=== PATIENT | male | born 1960 | race Caucasian/White ===

== ENCOUNTER 2020-05-06 07:04 | Inpatient (IN) | payer MEDICAID, OTHER ==
[~2020-05-06] VITALS: Ht 170.2 cm; Wt 77.7 kg
[2020-05-06 07:48] LABS: HEMATOCRIT. 33.5 % (42.0-52.0); HEMOGLOBIN. 11.6 g/dL (14.0-18.0); MEAN CORPUSCULAR HEMOGLOBIN 34.1 pg (28.0-32.0); MEAN CORPUSCULAR VOLUME 98.4 fL (80.0-94.0); MEAN PLATELET VOLUME 9.2 fl (7.4-10.4); PLATELET 116 x1000/uL (130-400); RED CELL DISTRIBUTION WIDTH 15.9 % (11.6-14.6)
[2020-05-06 07:54] LABS: CHLORIDE 99 mEq/L (98-107)
[2020-05-06 07:59] LABS: ETHANOL BLOOD < 10 mg/dL
[2020-05-06 08:03] LABS: CLARITY URINE CLOUDY (CLEAR); COLOR URINE ORANGE (YELLOW); KETONES URINE TRACE (NEGATIVE); LEUKOCYTE ESTERASE URINE 1+ (NEGATIVE); NITRITE URINE NEGATIVE (NEGATIVE); OCCULT BLOOD URINE 3+ (NEGATIVE); PROTEIN URINE TRACE (NEGATIVE); SPECIFIC GRAVITY URINE 1.024 (1.005-1.030)
[2020-05-06 08:19] LABS: *BENZODIAZEPINES SCREEN URINE NEGATIVE (NEGATIVE)
[2020-05-06 08:20] LABS: *AMPHETAMINES SCREEN URINE NEGATIVE (NEGATIVE); *COCAINE SCREEN URINE NEGATIVE (NEGATIVE); CANNABINOID URINE SCREEN NEGATIVE (NEGATIVE); METHADONE URINE SCREEN NEGATIVE (NEGATIVE); OPIATES URINE SCREEN NEGATIVE (NEGATIVE); PHENCYCLIDINE URINE SCREEN NEGATIVE (NEGATIVE)
[2020-05-06 08:21] LABS: *BARBITURATES SCREEN URINE NEGATIVE (NEGATIVE)
[2020-05-06 09:11] LABS: BG BASE EXCESS -12.1 mmol/L (-2.0-2.0); BG CARBOXYHEMOGLOBIN 0.3 % (0.5-1.5); BG DEOXYHEMOGLOBIN 1.7 % (0.0-5.0); BG FRACTION INSPIRED OXYGEN 21; BG HCO3 ACT 11.4 mmol/L (22.0-26.0); BG METHEMOGLOBIN 0.5 % (0.0-1.5); BG OXYGEN SATURATION 98.3 % (92.0-98.5); BG OXYHEMOGLOBIN 97.5 % (94.0-97.0); BG PCO2 20.8 mmHg (35.0-45.0); BG PH 7.357 (7.350-7.450); BG PO2 141.4 mmHg (75.0-100.0); BG SAMPLE SITE RIGHT RADIAL; BG TOTAL HEMOGLOBIN 11.4 g/dL (12.0-18.0); BG VENT MODE ROOM AIR
[2020-05-06 09:14] LABS: ATYPICAL LYMPHOCYTES 1
[2020-05-06 09:15] LABS: PLATELET ESTIMATE SLIGHTLY DECREASED
[2020-05-06] MEDS ORDERED: LEVETIRACETAM 1000MG/100ML 100 ML IV ONE (09:15)
[2020-05-06] MEDS ORDERED: LACTULOSE 20G/30ML UDC PO ONE (09:15)
[2020-05-06 13:00] VITALS: BP 97/60
[2020-05-06] MEDS ORDERED: ONDANSETRON HCL 4MG/2ML INJ IV PRN (13:15)
[2020-05-06] MEDS ORDERED: CEFTRIAXONE 1,000 MG in DEXTROSE 5% WATER 50 ML IV SCH (14:30)
[2020-05-06] MEDS ORDERED: IOHEXOL-300 100 ML BOTTLE ONE (14:47)
[2020-05-06] MEDS: LACTULOSE 20G/30ML UDC PO SCH ×2 (15:17→21:05)
[2020-05-06] MEDS: SODIUM CHLORIDE 0.9% 1,000 ML IV SCH (15:18)
[2020-05-06 16:00] VITALS: BP 102/49
[2020-05-06] MEDS: CEFTRIAXONE 1,000 MG in DEXTROSE 5% WATER 50 ML IV SCH (16:12)
[2020-05-06] MEDS ORDERED: DEXTROSE 50% WATER 50ML SYRINGE IV PRN (16:15)
[2020-05-06 16:32] LABS: INR 1.3; PROTHROMBIN TIME 13.3 sec (9.6-11.0)
[2020-05-06] MEDS: BLOOD SUGAR DIAGNOSTIC STRIP TEST SCH ×2 (16:54→20:44)
[2020-05-06] MEDS: INSULIN LISPRO 100 UNITS/ML SUBCUT SCH ×2 (16:56→20:44)
[2020-05-06 20:00] VITALS: BP 97/64
[2020-05-06] MEDS: RIFAXIMIN 550 MG TABLET PO SCH (20:44)
[2020-05-06] MEDS: LORAZEPAM 2MG/ML CPJ IV PRN (20:44)
[2020-05-07] VITALS (7 sets, daily range): BP systolic 94–151; BP diastolic 47–76
[2020-05-07] MEDS: LORAZEPAM 2MG/ML CPJ IV PRN ×3 (03:47→21:06)
[2020-05-07] MEDS: LACTULOSE 20G/30ML UDC PO SCH ×3 (05:03→21:32)
[2020-05-07] MEDS: INSULIN LISPRO 100 UNITS/ML SUBCUT SCH ×4 (06:14→21:00)
[2020-05-07] MEDS: BLOOD SUGAR DIAGNOSTIC STRIP TEST SCH ×4 (06:14→21:21)
[2020-05-07] MEDS: RIFAXIMIN 550 MG TABLET PO SCH ×2 (09:20→21:29)
[2020-05-07 09:52] LABS: BASOPHILS % 0.4 % (0.0-2.0); EOSINOPHILS % 0.8 % (0.0-5.0); HEMATOCRIT. 29.3 % (42.0-52.0); HEMOGLOBIN. 10.4 g/dL (14.0-18.0); LYMPHOCYTES % 8.9 % (20.0-50.0); MEAN CORPUSCULAR HEMOGLOBIN 34.5 pg (28.0-32.0); MEAN CORPUSCULAR VOLUME 97.6 fL (80.0-94.0); MEAN PLATELET VOLUME 8.9 fl (7.4-10.4); NEUTROPHILS % 77.9 % (40.0-76.0); PLATELET 78 x1000/uL (130-400); RED CELL DISTRIBUTION WIDTH 15.7 % (11.6-14.6)
[2020-05-07 10:00] LABS: CHLORIDE 106 mEq/L (98-107)
[2020-05-07] MEDS: SODIUM CHLORIDE 0.9% 1,000 ML IV SCH (11:08)
[2020-05-07] MEDS ORDERED: LORAZEPAM 2MG/ML CPJ IV SCH (13:30)
[2020-05-07] MEDS ORDERED: LIDOCAINE HCL 1% 20ML VIAL (Pyxis) INJ ONE (14:31)
[2020-05-07] MEDS ORDERED: SODIUM BICARBONATE 4% (2.4MEQ) 5ML VIAL IV ONE (14:32)
[2020-05-07] MEDS: CEFTRIAXONE 1,000 MG in DEXTROSE 5% WATER 50 ML IV SCH (16:05)
[2020-05-08 00:44] VITALS: BP 95/54
[2020-05-08 04:30] VITALS: BP 98/45
[2020-05-08] MEDS: LACTULOSE 20G/30ML UDC PO SCH ×3 (05:09→21:05)
[2020-05-08] MEDS: BLOOD SUGAR DIAGNOSTIC STRIP TEST SCH ×4 (05:50→20:32)
[2020-05-08] MEDS: INSULIN LISPRO 100 UNITS/ML SUBCUT SCH ×4 (05:50→20:37)
[2020-05-08] MEDS: SODIUM CHLORIDE 0.9% 1,000 ML IV SCH (06:15)
[2020-05-08 07:01] LABS: BASOPHILS % 0.8 % (0.0-2.0); EOSINOPHILS % 1.2 % (0.0-5.0); HEMATOCRIT. 31.8 % (42.0-52.0); HEMOGLOBIN. 11.1 g/dL (14.0-18.0); LYMPHOCYTES % 9.6 % (20.0-50.0); MEAN CORPUSCULAR HEMOGLOBIN 34.3 pg (28.0-32.0); MEAN CORPUSCULAR VOLUME 98.2 fL (80.0-94.0); MEAN PLATELET VOLUME 9.1 fl (7.4-10.4); MONOCYTES % 13.7 % (2.0-8.0); NEUTROPHILS % 74.7 % (40.0-76.0); PLATELET 92 x1000/uL (130-400); RED BLOOD CELL COUNT 3.23 mill/uL (4.7-6.1); RED CELL DISTRIBUTION WIDTH 16.2 % (11.6-14.6)
[2020-05-08 07:46] LABS: CHLORIDE 109 mEq/L (98-107)
[2020-05-08 08:00] VITALS: BP 97/64
[2020-05-08] MEDS: RIFAXIMIN 550 MG TABLET PO SCH ×2 (11:13→21:05)
[2020-05-08 12:29] VITALS: BP 107/73
[2020-05-08] MEDS ORDERED: POTASSIUM CHLORIDE 20MEQ TABLET SR PO NR (12:45)
[2020-05-08] MEDS ORDERED: POTASSIUM CHLORIDE INJ 40 MEQ in DEXT 5% WATER 250 ML IV NR (14:00)
[2020-05-08] MEDS: CEFTRIAXONE 1,000 MG in DEXTROSE 5% WATER 50 ML IV SCH (15:14)
[2020-05-08 15:59] LABS: CREATINE KINASE 3872 IU/L (39-308)
[2020-05-08 16:00] VITALS: BP 100/63
[2020-05-08 20:24] VITALS: BP 110/60
[2020-05-08] MEDS: LORAZEPAM 2MG/ML CPJ IV PRN (21:05)
[2020-05-09 00:44] VITALS: BP 97/48
[2020-05-09 04:00] VITALS: BP 114/65
[2020-05-09] MEDS: SODIUM CHLORIDE 0.9% 1,000 ML IV SCH (05:36)
[2020-05-09] MEDS: LACTULOSE 20G/30ML UDC PO SCH ×3 (05:36→21:18)
[2020-05-09 06:48] LABS: EOSINOPHILS % 3.4 % (0.0-5.0); HEMATOCRIT. 31.7 % (42.0-52.0); HEMOGLOBIN. 10.9 g/dL (14.0-18.0); LYMPHOCYTES % 14.5 % (20.0-50.0); MEAN CORPUSCULAR HEMOGLOBIN 34.2 pg (28.0-32.0); MEAN CORPUSCULAR VOLUME 99.4 fL (80.0-94.0); MEAN PLATELET VOLUME 9.2 fl (7.4-10.4); MONOCYTES % 14.4 % (2.0-8.0); NEUTROPHILS % 66.7 % (40.0-76.0); PLATELET 94 x1000/uL (130-400); RED BLOOD CELL COUNT 3.18 mill/uL (4.7-6.1); RED CELL DISTRIBUTION WIDTH 15.8 % (11.6-14.6)
[2020-05-09] MEDS: INSULIN LISPRO 100 UNITS/ML SUBCUT SCH ×4 (07:35→20:51)
[2020-05-09] MEDS: BLOOD SUGAR DIAGNOSTIC STRIP TEST SCH ×4 (07:35→20:51)
[2020-05-09 07:50] LABS: CHLORIDE 113 mEq/L (98-107)
[2020-05-09 08:00] VITALS: BP 105/52
[2020-05-09] MEDS: RIFAXIMIN 550 MG TABLET PO SCH ×2 (08:33→20:52)
[2020-05-09] MEDS ORDERED: POTASSIUM CHLORIDE 20MEQ TABLET SR PO NR (11:15)
[2020-05-09 12:00] VITALS: BP 93/60
[2020-05-09] MEDS: CEFTRIAXONE 1,000 MG in DEXTROSE 5% WATER 50 ML IV SCH (15:48)
[2020-05-09 16:00] VITALS: BP 90/58
[2020-05-09 20:21] VITALS: BP 104/65
[2020-05-10 00:03] VITALS: BP 101/64
[2020-05-10] MEDS: SODIUM CHLORIDE 0.9% 1,000 ML IV SCH (02:01)
[2020-05-10 04:00] VITALS: BP 109/70
[2020-05-10] MEDS: LACTULOSE 20G/30ML UDC PO SCH ×3 (06:25→21:33)
[2020-05-10] MEDS: BLOOD SUGAR DIAGNOSTIC STRIP TEST SCH ×4 (06:38→21:33)
[2020-05-10] MEDS: INSULIN LISPRO 100 UNITS/ML SUBCUT SCH ×4 (07:33→21:00)
[2020-05-10 08:00] VITALS: BP 90/58
[2020-05-10] MEDS: RIFAXIMIN 550 MG TABLET PO SCH ×2 (09:34→21:33)
[2020-05-10 12:00] VITALS: BP 96/58
[2020-05-10 15:46] LABS: CHLORIDE 113 mEq/L (98-107)
[2020-05-10 16:00] VITALS: BP 102/63
[2020-05-10] MEDS: CEFTRIAXONE 1,000 MG in DEXTROSE 5% WATER 50 ML IV SCH (16:45)
[2020-05-10 20:23] VITALS: BP 99/67
[2020-05-11 00:28] VITALS: BP 103/68
[2020-05-11] MEDS: LORAZEPAM 2MG/ML CPJ IV PRN (02:38)
[2020-05-11 04:00] VITALS: BP 119/70
[2020-05-11] MEDS: LACTULOSE 20G/30ML UDC PO SCH ×3 (05:17→21:24)
[2020-05-11] MEDS: BLOOD SUGAR DIAGNOSTIC STRIP TEST SCH ×4 (06:46→21:24)
[2020-05-11] MEDS: INSULIN LISPRO 100 UNITS/ML SUBCUT SCH ×4 (06:47→21:37)
[2020-05-11 08:30] VITALS: BP 97/71
[2020-05-11] MEDS ORDERED: POTASSIUM CHLORIDE 20MEQ TABLET SR PO NR (08:30)
[2020-05-11] MEDS: RIFAXIMIN 550 MG TABLET PO SCH ×2 (09:29→21:24)
[2020-05-11 12:00] VITALS: BP 93/61
[2020-05-11 16:00] VITALS: BP 105/71
[2020-05-11 20:30] VITALS: BP 106/63
[2020-05-12 00:21] VITALS: BP 110/66
[2020-05-12 04:00] VITALS: BP 101/68
[2020-05-12] MEDS: LACTULOSE 20G/30ML UDC PO SCH ×3 (05:00→21:02)
[2020-05-12] MEDS: BLOOD SUGAR DIAGNOSTIC STRIP TEST SCH ×4 (06:45→20:23)
[2020-05-12] MEDS: INSULIN LISPRO 100 UNITS/ML SUBCUT SCH ×4 (07:14→20:24)
[2020-05-12 08:00] VITALS: BP 107/66
[2020-05-12 12:03] VITALS: BP 110/73
[2020-05-12 15:02] LABS: CHLORIDE 108 mEq/L (98-107)
[2020-05-12 15:05] LABS: INR 1.3; PROTHROMBIN TIME 13.5 sec (9.6-11.0)
[2020-05-12 15:14] LABS: HEMOGLOBIN. 9.8 g/dL (14.0-18.0); MEAN CORPUSCULAR HEMOGLOBIN 34.1 pg (28.0-32.0); MEAN CORPUSCULAR VOLUME 97.6 fL (80.0-94.0); MEAN PLATELET VOLUME 7.9 fl (7.4-10.4); PLATELET 89 x1000/uL (130-400); RED BLOOD CELL COUNT 2.87 mill/uL (4.7-6.1); RED CELL DISTRIBUTION WIDTH 15.8 % (11.6-14.6)
[2020-05-12 16:00] VITALS: BP 119/48
[2020-05-12 16:45] LABS: PLATELET ESTIMATE DECREASED
[2020-05-12] MEDS: FUROSEMIDE 40MG TABLET PO SCH (16:45)
[2020-05-12 20:21] VITALS: BP 102/62
[2020-05-13] VITALS: BP 100/60
[2020-05-13 04:48] VITALS: BP 104/62
[2020-05-13] MEDS: LACTULOSE 20G/30ML UDC PO SCH ×3 (06:00→20:38)
[2020-05-13] MEDS: FUROSEMIDE 40MG TABLET PO SCH ×2 (06:15→16:46)
[2020-05-13] MEDS: BLOOD SUGAR DIAGNOSTIC STRIP TEST SCH ×4 (06:28→20:37)
[2020-05-13] MEDS: INSULIN LISPRO 100 UNITS/ML SUBCUT SCH ×3 (06:56→20:47)
[2020-05-13 07:07] LABS: CHLORIDE 107 mEq/L (98-107)
[2020-05-13 07:14] LABS: HEMATOCRIT. 27.7 % (42.0-52.0); HEMOGLOBIN. 9.8 g/dL (14.0-18.0); MEAN CORPUSCULAR HEMOGLOBIN 34.3 pg (28.0-32.0); MEAN CORPUSCULAR VOLUME 96.9 fL (80.0-94.0); MEAN PLATELET VOLUME 8.9 fl (7.4-10.4); PLATELET 87 x1000/uL (130-400); RED BLOOD CELL COUNT 2.86 mill/uL (4.7-6.1); RED CELL DISTRIBUTION WIDTH 15.8 % (11.6-14.6)
[2020-05-13 08:00] VITALS: BP 97/54
[2020-05-13] MEDS ORDERED: LIDOCAINE HCL 1% 20ML VIAL (Pyxis) INJ ONE (08:20)
[2020-05-13] MEDS ORDERED: SODIUM BICARBONATE 4% (2.4MEQ) 5ML VIAL IV ONE (08:21)
[2020-05-13] MEDS: SPIRONOLACTONE 50MG TABLET PO SCH (10:20)
[2020-05-13 12:00] VITALS: BP 108/72
[2020-05-13 16:00] VITALS: BP 98/55
[2020-05-13 20:00] VITALS: BP 97/55
[2020-05-13 23:05] LABS: PLATELET ESTIMATE DECREASED
[2020-05-14] VITALS (7 sets, daily range): BP systolic 94–111; BP diastolic 51–65
[2020-05-14] MEDS: LACTULOSE 20G/30ML UDC PO SCH ×3 (05:57→21:14)
[2020-05-14] MEDS: FUROSEMIDE 40MG TABLET PO SCH ×2 (06:03→17:25)
[2020-05-14 06:39] LABS: CHLORIDE 106 mEq/L (98-107)
[2020-05-14 06:47] LABS: BASOPHILS % 1.3 % (0.0-2.0); EOSINOPHILS % 5.2 % (0.0-5.0); HEMATOCRIT. 26.3 % (42.0-52.0); HEMOGLOBIN. 9.3 g/dL (14.0-18.0); LYMPHOCYTES % 18.6 % (20.0-50.0); MEAN CORPUSCULAR HEMOGLOBIN 34.6 pg (28.0-32.0); MEAN CORPUSCULAR VOLUME 97.6 fL (80.0-94.0); MEAN PLATELET VOLUME 8.8 fl (7.4-10.4); MONOCYTES % 14.8 % (2.0-8.0); NEUTROPHILS % 60.1 % (40.0-76.0); PLATELET 73 x1000/uL (130-400); RED CELL DISTRIBUTION WIDTH 16.2 % (11.6-14.6)
[2020-05-14] MEDS: BLOOD SUGAR DIAGNOSTIC STRIP TEST SCH ×4 (07:33→20:37)
[2020-05-14] MEDS: INSULIN LISPRO 100 UNITS/ML SUBCUT SCH ×4 (08:52→20:37)
[2020-05-14] MEDS: SPIRONOLACTONE 50MG TABLET PO SCH (08:52)
[2020-05-15] VITALS: BP 99/57
[2020-05-15 04:00] VITALS: BP 103/59
[2020-05-15] MEDS: LACTULOSE 20G/30ML UDC PO SCH ×3 (05:54→21:10)
[2020-05-15] MEDS: FUROSEMIDE 40MG TABLET PO SCH ×2 (06:25→17:25)
[2020-05-15 06:55] LABS: BASOPHILS % 1.1 % (0.0-2.0); EOSINOPHILS % 3.9 % (0.0-5.0); HEMATOCRIT. 26.4 % (42.0-52.0); HEMOGLOBIN. 9.3 g/dL (14.0-18.0); LYMPHOCYTES % 20.3 % (20.0-50.0); MEAN CORPUSCULAR HEMOGLOBIN 34.5 pg (28.0-32.0); MEAN CORPUSCULAR VOLUME 97.5 fL (80.0-94.0); MEAN PLATELET VOLUME 8.9 fl (7.4-10.4); MONOCYTES % 13.7 % (2.0-8.0); PLATELET 75 x1000/uL (130-400); RED BLOOD CELL COUNT 2.71 mill/uL (4.7-6.1); RED CELL DISTRIBUTION WIDTH 16.2 % (11.6-14.6)
[2020-05-15] MEDS: BLOOD SUGAR DIAGNOSTIC STRIP TEST SCH ×4 (06:59→21:07)
[2020-05-15 07:05] LABS: CHLORIDE 106 mEq/L (98-107)
[2020-05-15] MEDS: INSULIN LISPRO 100 UNITS/ML SUBCUT SCH ×4 (07:50→21:00)
[2020-05-15 08:00] VITALS: BP 102/59
[2020-05-15] MEDS: SPIRONOLACTONE 50MG TABLET PO SCH (09:00)
[2020-05-15 12:00] VITALS: BP 107/53
[2020-05-15 16:00] VITALS: BP 98/57
[2020-05-15 20:00] VITALS: BP 100/58
[2020-05-16] VITALS: BP 112/59
[2020-05-16 04:00] VITALS: BP 92/48
[2020-05-16] MEDS: LACTULOSE 20G/30ML UDC PO SCH ×3 (06:03→21:52)
[2020-05-16] MEDS: FUROSEMIDE 40MG TABLET PO SCH ×2 (06:15→17:15)
[2020-05-16] MEDS: BLOOD SUGAR DIAGNOSTIC STRIP TEST SCH ×4 (07:05→21:00)
[2020-05-16] MEDS: INSULIN LISPRO 100 UNITS/ML SUBCUT SCH ×4 (07:50→21:00)
[2020-05-16 08:00] VITALS: BP 94/57
[2020-05-16] MEDS: SPIRONOLACTONE 50MG TABLET PO SCH (09:00)
[2020-05-16 12:00] VITALS: BP 102/50
[2020-05-16 16:00] VITALS: BP 99/54
[2020-05-16 22:16] VITALS: BP 92/52
[2020-05-17] VITALS: BP 119/59
[2020-05-17 06:09] VITALS: BP 103/60
[2020-05-17] MEDS: LACTULOSE 20G/30ML UDC PO SCH ×2 (06:31→13:09)
[2020-05-17] MEDS: BLOOD SUGAR DIAGNOSTIC STRIP TEST SCH ×2 (06:54→11:49)
[2020-05-17] MEDS: INSULIN LISPRO 100 UNITS/ML SUBCUT SCH ×2 (07:43→13:09)
[2020-05-17 08:00] VITALS: BP 99/56
[2020-05-17] MEDS: FUROSEMIDE 40MG TABLET PO SCH (08:29)
[2020-05-17] MEDS ORDERED: SPIRONOLACTONE 25MG TABLET PO SCH (09:00)
[2020-05-17 12:00] VITALS: BP 102/54
[2020-05-17] MEDS ORDERED: LACT10SO7 MT (12:09)
[2020-05-17] MEDS ORDERED: SPIR100T5 MT (12:11)
[2020-05-17] MEDS ORDERED: FURO-151 MT (12:11)
[2020-05-17 14:31] VITALS: BP 102/54
== END 2020-05-17 15:41 | disposition home or self-care (01) | DRG 720 ==
LOC: ER 07:04 → EDBD 07:04 → 6WST 10:33 → EDBEDREQ 10:38 → EDBEDREQTM 10:38 → ENRESERV 12:14 → 6EST 05-13 15:48
PROVIDERS: ADMIT Internal Medicine; ATTEND Internal Medicine
PROC: 0W9G3ZZ Drainage of Peritoneal Cavity, Percutaneous Approach (ICD-10-PCS; principal; 2020-05-07)
PROC: 0W9G3ZZ Drainage of Peritoneal Cavity, Percutaneous Approach (ICD-10-PCS; 2020-05-13)
DX: A41.9 Sepsis, unspecified organism (principal); K72.90 Hepatic failure, unspecified without coma; E43 Unspecified severe protein-calorie malnutrition; D69.6 Thrombocytopenia, unspecified; E11.9 Type 2 diabetes mellitus without complications; K65.2 Spontaneous bacterial peritonitis; E87.1 Hypo-osmolality and hyponatremia; K74.60 Unspecified cirrhosis of liver; K80.20 Calculus of gallbladder without cholecystitis without obstruction; N19 Unspecified kidney failure; D53.9 Nutritional anemia, unspecified; G93.41 Metabolic encephalopathy; R18.8 Other ascites; R56.9 Unspecified convulsions; S00.03XA Contusion of scalp, initial encounter; X58.XXXA Exposure to other specified factors, initial encounter; Y93.89 Activity, other specified; Y92.89 Other specified places as the place of occurrence of the external cause; Y99.8 Other external cause status; Z59.0 Homelessness; Z68.26 Body mass index [BMI] 26.0-26.9, adult
CPT/HCPCS: 36415; 36600; 49083; 70486; 71045; 74176; 74177; 76700; 80048; 80053; 80076; 80305; 80320; 81003; 82140; 82375; 82550; 82805; 82962; 83036; 85025; 86850; 86900; 93005; 97116; 97162; 97530; 97535; 99285; J0696; J1815; J1953; J2060; J3480; J3490; J7030; J7060; Q9967; G0480

== ENCOUNTER 2020-06-04 20:42 | Inpatient (IN) | payer MEDICAID, OTHER ==
[~2020-06-04] VITALS: Ht 154.9 cm; Wt 81.6 kg
[~2020-06-04 20:42] MED LIST: FURO-151 MT; LACT10SO7 MT; SPIR100T5 MT
[2020-06-04 21:43] LABS: HEMATOCRIT. 30.5 % (42.0-52.0); HEMOGLOBIN. 10.4 g/dL (14.0-18.0); MEAN CORPUSCULAR HEMOGLOBIN 34.9 pg (28.0-32.0); MEAN CORPUSCULAR VOLUME 102.3 fL (80.0-94.0); MEAN PLATELET VOLUME 10.2 fl (7.4-10.4); PLATELET 124 x1000/uL (130-400); RED BLOOD CELL COUNT 2.98 mill/uL (4.7-6.1); RED CELL DISTRIBUTION WIDTH 15.9 % (11.6-14.6)
[2020-06-04 21:53] LABS: INR 1.2; PROTHROMBIN TIME 12.8 sec (9.6-11.0)
[2020-06-04 21:57] LABS: CHLORIDE 104 mEq/L (98-107)
[2020-06-04 22:38] LABS: PLATELET ESTIMATE DECREAS
[2020-06-04 23:33] VITALS: BP 99/53
[2020-06-05] VITALS: BP 99/52
[2020-06-05] MEDS ORDERED: ZOLPIDEM TARTRATE 5MG TABLET PO PRN
[2020-06-05] MEDS ORDERED: MAGNESIUM/ALUMINUM HYDROXIDE/SIMETHICONE 30ML UDC PO PRN
[2020-06-05] MEDS ORDERED: CLONIDINE 0.1MG TABLET PO PRN
[2020-06-05] MEDS ORDERED: ACETAMINOPHEN 325MG TABLET PO PRN ×2
[2020-06-05] MEDS ORDERED: DIPHENHYDRAMINE 50MG/ML VIAL IV PRN
[2020-06-05] MEDS ORDERED: ONDANSETRON HCL 4MG/2ML INJ IV PRN
[2020-06-05] MEDS ORDERED: IPRATROPIUM/ALBUTEROL 0.5-3(2.5)MG/3ML NEB HHN PRN
[2020-06-05 04:00] VITALS: BP 99/42
[2020-06-05] MEDS: LACTULOSE 20G/30ML UDC PO SCH ×2 (05:45→14:17)
[2020-06-05] MEDS: SODIUM CHLORIDE 0.9% INJ 3ML FLUSH IVF SCH ×2 (05:45→14:13)
[2020-06-05 08:00] VITALS: BP 106/60
[2020-06-05] MEDS ORDERED: LIDOCAINE HCL 1% 20ML VIAL (Pyxis) INJ ONE (08:18)
[2020-06-05] MEDS ORDERED: SODIUM BICARBONATE 4% (2.4MEQ) 5ML VIAL IV ONE (08:18)
[2020-06-05] MEDS ORDERED: SPIRONOLACTONE 50MG TABLET PO SCH (09:00)
[2020-06-05] MEDS ORDERED: FUROSEMIDE 40MG TABLET PO SCH (09:00)
[2020-06-05 12:00] VITALS: BP 106/50
[2020-06-05 14:06] VITALS: BP 106/50
== END 2020-06-05 14:26 | disposition home or self-care (01) ==
LOC: ER 20:42 → 6EST 22:16 → ENRESERV 22:38
PROVIDERS: ADMIT Internal Medicine; ATTEND Internal Medicine
PROC: 0W9G3ZZ Drainage of Peritoneal Cavity, Percutaneous Approach (ICD-10-PCS; principal; 2020-06-05)
DX: K74.60 Unspecified cirrhosis of liver (principal); E11.9 Type 2 diabetes mellitus without complications; E43 Unspecified severe protein-calorie malnutrition; R18.8 Other ascites; Z68.34 Body mass index [BMI] 34.0-34.9, adult; Z79.899 Other long term (current) drug therapy
CPT/HCPCS: 36415; 49083; 80053; 82140; 85025; 93005; 99285; J3490

== ENCOUNTER 2020-06-17 15:07 | Inpatient (IN) | payer MEDICAID, OTHER ==
[~2020-06-17] VITALS: Ht 162.6 cm; Wt 78.9 kg
[2020-06-17 17:16] LABS: HEMOGLOBIN. 10.7 g/dL (14.0-18.0); MEAN CORPUSCULAR HEMOGLOBIN 35.3 pg (28.0-32.0); MEAN CORPUSCULAR VOLUME 102.4 fL (80.0-94.0); MEAN PLATELET VOLUME 9.3 fl (7.4-10.4); PLATELET 81 x1000/uL (130-400); RED BLOOD CELL COUNT 3.03 mill/uL (4.7-6.1); RED CELL DISTRIBUTION WIDTH 15.4 % (11.6-14.6)
[2020-06-17 17:22] LABS: CHLORIDE 111 mEq/L (98-107)
[2020-06-17 17:26] LABS: ETHANOL BLOOD < 10 mg/dL
[2020-06-17 17:35] LABS: INR 1.1
[2020-06-17 18:12] LABS: CLARITY URINE CLEAR (CLEAR); COLOR URINE DARK YELLOW (YELLOW); KETONES URINE TRACE (NEGATIVE); LEUKOCYTE ESTERASE URINE 2+ (NEGATIVE); NITRITE URINE NEGATIVE (NEGATIVE); OCCULT BLOOD URINE NEGATIVE (NEGATIVE); PH URINE 5.5 (4.5-8.0); PROTEIN URINE NEGATIVE (NEGATIVE); SPECIFIC GRAVITY URINE 1.025 (1.005-1.030)
[2020-06-17 18:22] LABS: *AMPHETAMINES SCREEN URINE PRESUMTIVE POSITIVE (NEGATIVE); *BARBITURATES SCREEN URINE NEGATIVE (NEGATIVE); *BENZODIAZEPINES SCREEN URINE NEGATIVE (NEGATIVE); *COCAINE SCREEN URINE NEGATIVE (NEGATIVE); METHADONE URINE SCREEN NEGATIVE (NEGATIVE); OPIATES URINE SCREEN NEGATIVE (NEGATIVE)
[2020-06-17 18:23] LABS: CANNABINOID URINE SCREEN NEGATIVE (NEGATIVE); PHENCYCLIDINE URINE SCREEN NEGATIVE (NEGATIVE)
[2020-06-17 18:25] LABS: ATYPICAL LYMPHOCYTES 1; PLATELET ESTIMATE DECREASED
[2020-06-17] MEDS ORDERED: ACETAMINOPHEN 325MG TABLET PO PRN ×2 (20:15)
[2020-06-17] MEDS ORDERED: ONDANSETRON HCL 4MG/2ML INJ IV PRN (20:15)
[2020-06-17] MEDS ORDERED: MAGNESIUM/ALUMINUM HYDROXIDE/SIMETHICONE 30ML UDC PO PRN (20:15)
[2020-06-17] MEDS ORDERED: METHYLPREDNISOLONE SOD SUCC 125 MG/2 ML VIAL IV NR (20:30)
[2020-06-17] MEDS ORDERED: DIPHENHYDRAMINE 50MG/ML VIAL IV PRN (20:30)
[2020-06-17] MEDS: SODIUM CHLORIDE 0.9% INJ 3ML FLUSH IVF SCH (20:37)
[2020-06-17] MEDS: TRIAMCINOLONE ACETONIDE 0.1% CREAM 15GM TOP SCH (21:34)
[2020-06-17 22:43] VITALS: BP 135/74
[2020-06-18] VITALS: BP 136/74
[2020-06-18 01:52] VITALS: BP 121/62
[2020-06-18 04:00] VITALS: BP 100/55
[2020-06-18] MEDS: SODIUM CHLORIDE 0.9% INJ 3ML FLUSH IVF SCH (05:17)
[2020-06-18 08:00] VITALS: BP 133/67
[2020-06-18] MEDS ORDERED: LIDOCAINE HCL/EPINEPHRINE 1%-EPI 1:100,000 20 ML VIAL ONE (08:02)
[2020-06-18] MEDS ORDERED: SODIUM BICARBONATE 4% (2.4MEQ) 5ML VIAL IV ONE (08:02)
[2020-06-18] MEDS: TRIAMCINOLONE ACETONIDE 0.1% CREAM 15GM TOP SCH (09:30)
[2020-06-18 12:00] VITALS: BP 117/55
[2020-06-18 15:16] VITALS: BP 117/55
[2020-07-07] MEDS ORDERED: FURO-151 MT (11:39)
[2020-07-07] MEDS ORDERED: LACT10SO7 PO (11:39)
[2020-07-24] MEDS ORDERED: RIFA550T PO (08:36)
== END 2020-06-18 15:33 | disposition home or self-care (01) ==
LOC: ER 15:07 → 6EST 18:49 → EDBEDREQ 18:52 → EDBEDREQSVC 18:52 → EDBEDREQTM 18:52 → ENRESERV 20:46
PROVIDERS: ADMIT Internal Medicine; ATTEND Internal Medicine
PROC: 0W9G3ZZ Drainage of Peritoneal Cavity, Percutaneous Approach (ICD-10-PCS; principal; 2020-06-18)
DX: K74.60 Unspecified cirrhosis of liver (principal); D72.1 Eosinophilia; E11.9 Type 2 diabetes mellitus without complications; F15.10 Other stimulant abuse, uncomplicated; I10 Essential (primary) hypertension; K42.9 Umbilical hernia without obstruction or gangrene; L30.9 Dermatitis, unspecified; R18.8 Other ascites; Z79.899 Other long term (current) drug therapy
CPT/HCPCS: 36415; 49083; 71045; 74176; 80053; 80305; 80320; 81003; 83880; 85025; 99285; J2930; J3490; G0480

== ENCOUNTER 2020-06-28 01:05 | Emergency (ER) | payer MEDICAID, OTHER ==
[~2020-06-28] VITALS: Ht 162.6 cm; Wt 77.0 kg
[2020-06-28] MEDS ORDERED: TRAMADOL 50MG TABLET PO ONE (02:00)
[2020-06-28 02:11] LABS: CHLORIDE 116 mEq/L (98-107)
[2020-06-28 02:14] LABS: EOSINOPHILS % 3.9 % (0.0-5.0); HEMATOCRIT. 27.9 % (42.0-52.0); HEMOGLOBIN. 9.5 g/dL (14.0-18.0); LYMPHOCYTES % 15.1 % (20.0-50.0); MEAN CORPUSCULAR HEMOGLOBIN 34.4 pg (28.0-32.0); MEAN CORPUSCULAR VOLUME 100.9 fL (80.0-94.0); MEAN PLATELET VOLUME 10.1 fl (7.4-10.4); PLATELET 66 x1000/uL (130-400); RED BLOOD CELL COUNT 2.77 mill/uL (4.7-6.1); RED CELL DISTRIBUTION WIDTH 15.2 % (11.6-14.6)
[2020-06-28 02:15] LABS: INR 1.2; PROTHROMBIN TIME 12.5 sec (9.6-11.0)
[2020-06-28 05:19] VITALS: BP 116/78
== END 2020-06-28 05:19 | disposition home or self-care (01) ==
LOC: ER 01:05
DX: K74.60 Unspecified cirrhosis of liver (principal); R18.8 Other ascites; I49.9 Cardiac arrhythmia, unspecified
CPT/HCPCS: 36415; 71045; 80053; 85025; 93005; 93970; 99285

== ENCOUNTER 2020-07-02 08:05 | Inpatient (IN) | payer MEDICAID, OTHER ==
[~2020-07-02] VITALS: Ht 162.6 cm; Wt 72.6 kg
[2020-07-02 12:04] LABS: BASOPHILS % 0.3 % (0.0-2.0); EOSINOPHILS % 2.5 % (0.0-5.0); HEMATOCRIT. 26.6 % (42.0-52.0); HEMOGLOBIN. 9.4 g/dL (14.0-18.0); LYMPHOCYTES % 10.3 % (20.0-50.0); MEAN CORPUSCULAR VOLUME 99.6 fL (80.0-94.0); MEAN PLATELET VOLUME 9.9 fl (7.4-10.4); MONOCYTES % 11.4 % (2.0-8.0); NEUTROPHILS % 75.5 % (40.0-76.0); PLATELET 63 x1000/uL (130-400); RED BLOOD CELL COUNT 2.68 mill/uL (4.7-6.1); RED CELL DISTRIBUTION WIDTH 14.9 % (11.6-14.6)
[2020-07-02 12:10] LABS: CHLORIDE 109 mEq/L (98-107)
[2020-07-02] MEDS ORDERED: LACTULOSE 20G/30ML UDC PO ONE (13:45)
[2020-07-02] MEDS ORDERED: FUROSEMIDE 40MG/4ML VIAL IVP ONE (13:45)
[2020-07-02] MEDS ORDERED: HYDROCODONE/ACETAMINOPHEN 5/325MG TABLET PO ONE (15:45)
[2020-07-02 17:06] VITALS: BP 104/64
[2020-07-02] MEDS ORDERED: ACETAMINOPHEN 325MG TABLET PO PRN ×2 (17:45)
[2020-07-02] MEDS ORDERED: ONDANSETRON HCL 4MG/2ML INJ IV PRN (17:45)
[2020-07-02] MEDS ORDERED: CLONIDINE 0.1MG TABLET PO PRN (17:45)
[2020-07-02] MEDS ORDERED: MAGNESIUM/ALUMINUM HYDROXIDE/SIMETHICONE 30ML UDC PO PRN (17:45)
[2020-07-02 18:00] VITALS: BP 104/64
[2020-07-02] MEDS ORDERED: FOLI-43 MT (18:25)
[2020-07-02] MEDS ORDERED: ERGO500013 (18:25)
[2020-07-02] MEDS ORDERED: PANT40TA4 MT (18:25)
[2020-07-02 20:00] VITALS: BP 116/44
[2020-07-02] MEDS: LACTULOSE 20G/30ML UDC PO SCH (22:09)
[2020-07-02] MEDS: SODIUM CHLORIDE 0.9% INJ 3ML FLUSH IVF SCH (22:10)
[2020-07-03] VITALS: BP 109/49
[2020-07-03 04:00] VITALS: BP 104/60
[2020-07-03] MEDS: LACTULOSE 20G/30ML UDC PO SCH ×2 (06:27→13:18)
[2020-07-03] MEDS: SODIUM CHLORIDE 0.9% INJ 3ML FLUSH IVF SCH ×2 (06:27→13:18)
[2020-07-03 08:00] VITALS: BP 93/59
[2020-07-03] MEDS ORDERED: SPIRONOLACTONE 25MG TABLET PO SCH (09:00)
[2020-07-03] MEDS ORDERED: FUROSEMIDE 40MG/4ML VIAL IVP SCH (09:00)
[2020-07-03 10:02] LABS: INR 1.1
[2020-07-03] MEDS ORDERED: LIDOCAINE HCL 1% 20ML VIAL (Pyxis) INJ ONE (10:53)
[2020-07-03] MEDS ORDERED: SODIUM BICARBONATE 4% (2.4MEQ) 5ML VIAL IV ONE (10:54)
[2020-07-03 12:00] VITALS: BP 105/56
[2020-07-03 16:00] VITALS: BP 102/56
[2020-07-03 16:31] VITALS: BP 102/56
== END 2020-07-03 17:22 | disposition home or self-care (01) ==
LOC: ER 08:10 → CANBEDREQ 12:54 → 6EST 15:56 → ENRESERV 16:35
PROVIDERS: ADMIT Internal Medicine; ATTEND Internal Medicine
PROC: 0W9G3ZZ Drainage of Peritoneal Cavity, Percutaneous Approach (ICD-10-PCS; principal; 2020-07-03)
DX: K74.60 Unspecified cirrhosis of liver (principal); R18.8 Other ascites; E11.9 Type 2 diabetes mellitus without complications; F10.10 Alcohol abuse, uncomplicated; Y90.9 Presence of alcohol in blood, level not specified; Z20.828 Contact with and (suspected) exposure to other viral communicable diseases; Z87.891 Personal history of nicotine dependence; Z91.14 Patient's other noncompliance with medication regimen; Z79.84 Long term (current) use of oral hypoglycemic drugs; Z79.899 Other long term (current) drug therapy
CPT/HCPCS: 36415; 49083; 80053; 82140; 83880; 85025; 87426; 99285; J1940; J3490

== ENCOUNTER 2020-07-12 23:57 | Inpatient (IN) | payer MEDICAID, OTHER ==
[~2020-07-12] VITALS: Ht 134.6 cm; Wt 52.2 kg
[~2020-07-12 23:57] MED LIST changes: +ERGO500013; +FOLI-43 MT; +LACT10SO7 PO; +PANT40TA4 MT
[2020-07-13] MEDS ORDERED: ONDANSETRON HCL 4MG/2ML INJ IV STA (00:16)
[2020-07-13 00:45] LABS: BG BASE EXCESS -1.9 mmol/L (-2.0-2.0); BG CARBOXYHEMOGLOBIN 0.1 % (0.5-1.5); BG DEOXYHEMOGLOBIN 1.9 % (0.0-5.0); BG HCO3 ACT 19.2 mmol/L (22.0-26.0); BG METHEMOGLOBIN 0.2 % (0.0-1.5); BG OXYGEN SATURATION 98.1 % (92.0-98.5); BG OXYHEMOGLOBIN 97.8 % (94.0-97.0); BG PCO2 22.8 mmHg (35.0-45.0); BG PH 7.544 (7.350-7.450); BG PO2 112.4 mmHg (75.0-100.0); BG SAMPLE SITE RIGHT RADIAL; BG VENT MODE ROOM AIR
[2020-07-13 00:46] LABS: BASOPHILS % 0.4 % (0.0-2.0); EOSINOPHILS % 1.4 % (0.0-5.0); HEMATOCRIT. 28.2 % (42.0-52.0); LYMPHOCYTES % 13.6 % (20.0-50.0); MEAN PLATELET VOLUME 8.9 fl (7.4-10.4); MONOCYTES % 13.1 % (2.0-8.0); NEUTROPHILS % 71.5 % (40.0-76.0); PLATELET 115 x1000/uL (130-400); RED BLOOD CELL COUNT 2.94 mill/uL (4.7-6.1); RED CELL DISTRIBUTION WIDTH 14.7 % (11.6-14.6)
[2020-07-13 00:51] LABS: CHLORIDE 106 mEq/L (98-107); INR 1.3; PROTHROMBIN TIME 13.2 sec (9.6-11.0)
[2020-07-13 00:55] LABS: ETHANOL BLOOD < 10 mg/dL
[2020-07-13 01:40] LABS: CLARITY URINE CLEAR (CLEAR); COLOR URINE DARK YELLOW (YELLOW); KETONES URINE NEGATIVE (NEGATIVE); LEUKOCYTE ESTERASE URINE TRACE (NEGATIVE); NITRITE URINE NEGATIVE (NEGATIVE); OCCULT BLOOD URINE NEGATIVE (NEGATIVE); PROTEIN URINE NEGATIVE (NEGATIVE); SPECIFIC GRAVITY URINE 1.012 (1.005-1.030); UROBILINOGEN URINE 0.2 E.U./dL (0.2-1.0)
[2020-07-13 02:06] LABS: *BENZODIAZEPINES SCREEN URINE PRESUMTIVE POSITIVE (NEGATIVE); *COCAINE SCREEN URINE NEGATIVE (NEGATIVE); METHADONE URINE SCREEN NEGATIVE (NEGATIVE); OPIATES URINE SCREEN NEGATIVE (NEGATIVE)
[2020-07-13 02:07] LABS: *AMPHETAMINES SCREEN URINE NEGATIVE (NEGATIVE); *BARBITURATES SCREEN URINE NEGATIVE (NEGATIVE); CANNABINOID URINE SCREEN NEGATIVE (NEGATIVE); PHENCYCLIDINE URINE SCREEN NEGATIVE (NEGATIVE)
[2020-07-13] MEDS ORDERED: MAGNESIUM/ALUMINUM HYDROXIDE/SIMETHICONE 30ML UDC PO PRN (08:00)
[2020-07-13] MEDS ORDERED: DOCUSATE SODIUM 100MG CAPSULE PO PRN (08:00)
[2020-07-13] MEDS ORDERED: CLONIDINE 0.1MG TABLET PO PRN (08:00)
[2020-07-13] MEDS ORDERED: IPRATROPIUM/ALBUTEROL 0.5-3(2.5)MG/3ML NEB HHN PRN (08:00)
[2020-07-13] MEDS ORDERED: LORAZEPAM 2MG/ML CPJ IV PRN (08:00)
[2020-07-13] MEDS ORDERED: GUAIFENESIN 200MG/10ML SUGAR FREE UDC PO PRN (08:00)
[2020-07-13] MEDS ORDERED: DEXTROSE 50% WATER 50ML SYRINGE IV PRN (08:00)
[2020-07-13] MEDS ORDERED: DIPHENHYDRAMINE 50MG/ML VIAL IV PRN (08:00)
[2020-07-13] MEDS ORDERED: ACETAMINOPHEN 325MG TABLET PO PRN (08:00)
[2020-07-13] MEDS ORDERED: ONDANSETRON HCL 4MG/2ML INJ IV PRN (08:00)
[2020-07-13] MEDS: INSULIN LISPRO 100 UNITS/ML SUBCUT SCH ×4 (08:20→21:10)
[2020-07-13 08:53] VITALS: BP 142/69
[2020-07-13] MEDS: BLOOD SUGAR DIAGNOSTIC STRIP TEST SCH ×4 (08:58→21:10)
[2020-07-13] MEDS: LACTULOSE 20G/30ML UDC PO SCH ×4 (09:04→21:03)
[2020-07-13] MEDS ORDERED: CLOT15CR2 TP (09:24)
[2020-07-13 09:56] VITALS: BP 142/69
[2020-07-13 12:00] VITALS: BP 124/65
[2020-07-13] MEDS: SODIUM CHLORIDE 0.9% INJ 3ML FLUSH IVF SCH ×2 (14:00→21:10)
[2020-07-13 16:00] VITALS: BP 142/69
[2020-07-13] MEDS ORDERED: ERGO2000 MT (17:13)
[2020-07-13 20:00] VITALS: BP 148/67
[2020-07-13] MEDS: RIFAXIMIN 550 MG TABLET PO SCH (21:03)
[2020-07-13 23:31] VITALS: BP_SYST 112; BP_SYST 143; BP_DIAS 101; BP_DIAS 59
[2020-07-14] MEDS: LACTULOSE 20G/30ML UDC PO SCH ×7 (00:20→23:17)
[2020-07-14 04:00] VITALS: BP 118/68
[2020-07-14 05:59] LABS: CHLORIDE 110 mEq/L (98-107)
[2020-07-14] MEDS: SODIUM CHLORIDE 0.9% INJ 3ML FLUSH IVF SCH ×3 (06:17→20:37)
[2020-07-14 06:21] LABS: HEMATOCRIT. 27.6 % (42.0-52.0); HEMOGLOBIN. 9.4 g/dL (14.0-18.0); MEAN CORPUSCULAR HEMOGLOBIN 33.5 pg (28.0-32.0); MEAN CORPUSCULAR VOLUME 98.3 fL (80.0-94.0); MEAN PLATELET VOLUME 9.5 fl (7.4-10.4); PLATELET 98 x1000/uL (130-400); RED BLOOD CELL COUNT 2.81 mill/uL (4.7-6.1); RED CELL DISTRIBUTION WIDTH 14.9 % (11.6-14.6)
[2020-07-14] MEDS: BLOOD SUGAR DIAGNOSTIC STRIP TEST SCH ×4 (06:31→20:37)
[2020-07-14] MEDS: INSULIN LISPRO 100 UNITS/ML SUBCUT SCH ×4 (06:31→20:37)
[2020-07-14 08:00] VITALS: BP 121/67
[2020-07-14] MEDS: RIFAXIMIN 550 MG TABLET PO SCH ×2 (08:48→20:32)
[2020-07-14 10:27] LABS: PLATELET ESTIMATE DECREASED
[2020-07-14 12:00] VITALS: BP 110/65
[2020-07-14] MEDS ORDERED: LIDOCAINE HCL 1% 20ML VIAL (Pyxis) INJ ONE (13:09)
[2020-07-14] MEDS ORDERED: SODIUM BICARBONATE 4% (2.4MEQ) 5ML VIAL IV ONE (13:09)
[2020-07-14] MEDS: SPIRONOLACTONE 50MG TABLET PO SCH (17:00)
[2020-07-14 17:27] VITALS: BP 98/55
[2020-07-14 20:00] VITALS: BP 108/61
[2020-07-14] MEDS: FUROSEMIDE 40MG TABLET PO SCH (20:32)
[2020-07-15] VITALS: BP 101/60
[2020-07-15] MEDS: LACTULOSE 20G/30ML UDC PO SCH ×3 (03:52→12:00)
[2020-07-15 04:00] VITALS: BP 105/60
[2020-07-15] MEDS: SODIUM CHLORIDE 0.9% INJ 3ML FLUSH IVF SCH (06:00)
[2020-07-15 06:38] LABS: HEMATOCRIT. 28.2 % (42.0-52.0); HEMOGLOBIN. 9.8 g/dL (14.0-18.0); MEAN CORPUSCULAR HEMOGLOBIN 33.7 pg (28.0-32.0); MEAN CORPUSCULAR VOLUME 97.5 fL (80.0-94.0); MEAN PLATELET VOLUME 9.5 fl (7.4-10.4); PLATELET 98 x1000/uL (130-400); RED BLOOD CELL COUNT 2.89 mill/uL (4.7-6.1); RED CELL DISTRIBUTION WIDTH 14.8 % (11.6-14.6)
[2020-07-15 06:43] LABS: CHLORIDE 108 mEq/L (98-107)
[2020-07-15] MEDS: BLOOD SUGAR DIAGNOSTIC STRIP TEST SCH ×2 (06:57→12:10)
[2020-07-15] MEDS: INSULIN LISPRO 100 UNITS/ML SUBCUT SCH ×2 (06:58→12:40)
[2020-07-15 08:00] VITALS: BP 115/71
[2020-07-15] MEDS: SPIRONOLACTONE 50MG TABLET PO SCH (09:48)
[2020-07-15] MEDS: RIFAXIMIN 550 MG TABLET PO SCH (09:48)
[2020-07-15] MEDS: FUROSEMIDE 40MG TABLET PO SCH (09:48)
[2020-07-15 12:00] VITALS: BP 114/66
[2020-07-15 14:36] VITALS: BP 114/66
[2020-07-15 22:50] LABS: PLATELET ESTIMATE DECREASED
== END 2020-07-15 15:55 | disposition home or self-care (01) ==
LOC: ER 23:57 → 8WST 07-13 02:38 → ENRESERV 07-13 07:37
PROVIDERS: ADMIT Internal Medicine; ATTEND Internal Medicine
PROC: 0W9G3ZZ Drainage of Peritoneal Cavity, Percutaneous Approach (ICD-10-PCS; principal; 2020-07-13)
DX: K74.60 Unspecified cirrhosis of liver (principal); K72.90 Hepatic failure, unspecified without coma; E72.20 Disorder of urea cycle metabolism, unspecified; R65.10 Systemic inflammatory response syndrome (SIRS) of non-infectious origin without acute organ dysfunction; D64.9 Anemia, unspecified; D69.6 Thrombocytopenia, unspecified; E87.2 Acidosis; E43 Unspecified severe protein-calorie malnutrition; I10 Essential (primary) hypertension; E87.1 Hypo-osmolality and hyponatremia; E11.9 Type 2 diabetes mellitus without complications; R74.01 Elevation of levels of liver transaminase levels; E80.6 Other disorders of bilirubin metabolism; E88.09 Other disorders of plasma-protein metabolism, not elsewhere classified; D72.829 Elevated white blood cell count, unspecified; K76.6 Portal hypertension; Z79.84 Long term (current) use of oral hypoglycemic drugs; Z68.28 Body mass index [BMI] 28.0-28.9, adult; Z59.0 Homelessness
CPT/HCPCS: 36415; 36600; 49083; 71045; 76700; 80048; 80053; 80076; 80305; 80320; 81003; 82040; 82105; 82140; 82248; 82270; 82375; 82805; 82962; 83605; 84484; 85025; 93005; 99291; J1815; J2405; J3490; G0480

== ENCOUNTER 2020-08-01 06:10 | Emergency (ER) | payer MEDICAID ==
[~2020-08-01] VITALS: Ht 162.6 cm; Wt 82.0 kg
[~2020-08-01 06:10] MED LIST changes: +CLOT15CR2 TP; +ERGO2000 MT; -ERGO500013; -LACT10SO7 PO; +RIFA550T PO
[2020-08-01 07:17] LABS: BASOPHILS % 1.2 % (0.0-2.0); EOSINOPHILS % 6.3 % (0.0-5.0); HEMATOCRIT. 27.2 % (42.0-52.0); HEMOGLOBIN. 9.5 g/dL (14.0-18.0); LYMPHOCYTES % 11.1 % (20.0-50.0); MEAN CORPUSCULAR HEMOGLOBIN 34.6 pg (28.0-32.0); MEAN PLATELET VOLUME 9.2 fl (7.4-10.4); MONOCYTES % 13.8 % (2.0-8.0); NEUTROPHILS % 67.6 % (40.0-76.0); PLATELET 95 x1000/uL (130-400); RED BLOOD CELL COUNT 2.75 mill/uL (4.7-6.1); RED CELL DISTRIBUTION WIDTH 16.8 % (11.6-14.6)
[2020-08-01 07:26] LABS: CHLORIDE 114 mEq/L (98-107)
[2020-08-01 07:28] LABS: INR 1.1; PROTHROMBIN TIME 11.6 sec (9.6-11.0)
[2020-08-01] MEDS ORDERED: SODIUM BICARBONATE 4% (2.4MEQ) 5ML VIAL IV ONE (08:04)
[2020-08-01] MEDS ORDERED: LIDOCAINE HCL 1% 20ML VIAL (Pyxis) INJ ONE (08:04)
[2020-08-01 10:02] VITALS: BP 104/61
== END 2020-08-01 10:09 | disposition home or self-care (01) ==
LOC: ER 06:10
DX: R18.8 Other ascites (principal); K76.9 Liver disease, unspecified; E11.9 Type 2 diabetes mellitus without complications; I10 Essential (primary) hypertension
CPT/HCPCS: 36415; 49083; 80053; 83690; 85025; 85610; 93005; 99285; J3490; Z7610

== ENCOUNTER 2020-09-19 21:57 | Emergency (ER) | payer MEDICAID ==
[~2020-09-19] VITALS: Ht 162.6 cm; Wt 88.0 kg
[2020-09-20 01:05] LABS: CHLORIDE 109 mEq/L (98-107)
[2020-09-20 01:06] LABS: HEMATOCRIT. 30.4 % (42.0-52.0); HEMOGLOBIN. 10.8 g/dL (14.0-18.0); MEAN CORPUSCULAR HEMOGLOBIN 33.8 pg (28.0-32.0); MEAN CORPUSCULAR VOLUME 94.6 fL (80.0-94.0); MEAN PLATELET VOLUME 8.5 fl (7.4-10.4); PLATELET 103 x1000/uL (130-400); RED BLOOD CELL COUNT 3.21 mill/uL (4.7-6.1); RED CELL DISTRIBUTION WIDTH 14.7 % (11.6-14.6)
[2020-09-20 01:50] LABS: INR 1.2; PARTIAL THROMBOPLASTIN TIME 28.7 sec (23.4-31.0); PROTHROMBIN TIME 12.4 sec (9.6-11.0)
[2020-09-20 03:03] LABS: ATYPICAL LYMPHOCYTES 1
[2020-09-20 03:04] LABS: PLATELET ESTIMATE SLIGHTLY DECREASED
[2020-09-20] MEDS: ONDANSETRON HCL 4MG/2ML INJ IV STA (04:10)
[2020-09-20] MEDS: MORPHINE SULFATE 4 MG/ML CPJ (NOT FOR IM USE) IV STA (04:10)
[2020-09-20 12:35] LABS: CLARITY URINE CLEAR (CLEAR); COLOR URINE DARK YELLOW (YELLOW); KETONES URINE NEGATIVE (NEGATIVE); LEUKOCYTE ESTERASE URINE 1+ (NEGATIVE); NITRITE URINE NEGATIVE (NEGATIVE); OCCULT BLOOD URINE 1+ (NEGATIVE); PROTEIN URINE 1+ (NEGATIVE); SPECIFIC GRAVITY URINE 1.024 (1.005-1.030); UROBILINOGEN URINE 0.2 E.U./dL (0.2-1.0)
[2020-09-20] MEDS: LACTULOSE 20G/30ML UDC PO SCH (14:00)
[2020-09-20] MEDS: FUROSEMIDE 40MG/4ML VIAL IVP SCH (14:11)
[2020-09-20] MEDS ORDERED: SODIUM BICARBONATE 4% (2.4MEQ) 5ML VIAL IV ONE (14:25)
[2020-09-20] MEDS ORDERED: LIDOCAINE HCL 1% 20ML VIAL (Pyxis) INJ ONE (14:25)
[2020-09-20] MEDS ORDERED: ACETAMINOPHEN 325MG TABLET PO PRN (14:45)
[2020-09-20] MEDS ORDERED: ONDANSETRON HCL 4MG/2ML INJ IV PRN (14:45)
[2020-09-20 16:01] VITALS: BP 123/62
[2020-09-20] MEDS: SPIRONOLACTONE 50MG TABLET PO SCH (16:02)
== END 2020-09-20 18:46 | disposition left against medical advice (07) ==
LOC: ER 21:57 → CANBEDREQ 09-20 22:40
DX: K70.31 Alcoholic cirrhosis of liver with ascites (principal); R74.01 Elevation of levels of liver transaminase levels; D63.1 Anemia in chronic kidney disease; E43 Unspecified severe protein-calorie malnutrition; E72.20 Disorder of urea cycle metabolism, unspecified; E87.1 Hypo-osmolality and hyponatremia; D69.6 Thrombocytopenia, unspecified; E11.22 Type 2 diabetes mellitus with diabetic chronic kidney disease; I12.9 Hypertensive chronic kidney disease with stage 1 through stage 4 chronic kidney disease, or unspecified chronic kidney disease; N18.9 Chronic kidney disease, unspecified; Z68.33 Body mass index [BMI] 33.0-33.9, adult
CPT/HCPCS: 36415; 49083; 80053; 81003; 82140; 83690; 85025; 85610; 85730; 87426; 93005; 96374; 96375; 99285; J1940; J2270; J2405; J3490; Z7610

== ENCOUNTER 2020-09-21 19:42 | Emergency (ER) | payer MEDICAID ==
[~2020-09-21] VITALS: Ht 162.6 cm; Wt 84.0 kg
[2020-09-21 19:44] VITALS: BP 114/67
[2020-09-21 23:06] LABS: HEMATOCRIT. 32.2 % (42.0-52.0); HEMOGLOBIN. 11.1 g/dL (14.0-18.0); PLATELET 102 x1000/uL (130-400); RED BLOOD CELL COUNT 3.36 mill/uL (4.7-6.1); RED CELL DISTRIBUTION WIDTH 15.9 % (11.6-14.6)
[2020-09-21 23:16] LABS: CHLORIDE 107 mEq/L (98-107)
[2020-09-21 23:24] LABS: PLATELET ESTIMATE DECREASED
== END 2020-09-22 01:16 | disposition left against medical advice (07) ==
LOC: ER 19:42
DX: T81.89XA Other complications of procedures, not elsewhere classified, initial encounter (principal); R10.9 Unspecified abdominal pain; K70.9 Alcoholic liver disease, unspecified; R06.00 Dyspnea, unspecified; Z98.890 Other specified postprocedural states; Y84.4 Aspiration of fluid as the cause of abnormal reaction of the patient, or of later complication, without mention of misadventure at the time of the procedure; Y92.018 Other place in single-family (private) house as the place of occurrence of the external cause
CPT/HCPCS: 36415; 71045; 80053; 85025; 99284

== ENCOUNTER 2020-09-22 10:06 | Emergency (ER) | payer MEDICAID ==
[~2020-09-22] VITALS: Ht 162.6 cm; Wt 82.0 kg
[2020-09-22 12:43] VITALS: BP 100/50
== END 2020-09-22 12:48 | disposition home or self-care (01) ==
LOC: ER 10:06
DX: K43.9 Ventral hernia without obstruction or gangrene (principal); K70.9 Alcoholic liver disease, unspecified
CPT/HCPCS: 93005; 99283

== ENCOUNTER 2020-10-23 18:04 | Emergency (ER) | payer MEDICAID, OTHER ==
[~2020-10-23] VITALS: Ht 162.6 cm; Wt 73.0 kg
[~2020-10-23 18:04] MED LIST changes: -CLOT15CR2 TP; +CLOT15CR27 TP; -PANT40TA4 MT; +PANT40TA51 MT
[2020-10-23] MEDS ORDERED: ACETAMINOPHEN 325MG TABLET PO ONE (18:45)
[2020-10-23 19:19] VITALS: BP 117/64
== END 2020-10-23 19:20 | disposition home or self-care (01) ==
LOC: ER 18:04
DX: R18.8 Other ascites (principal); M54.5 Low back pain; K74.60 Unspecified cirrhosis of liver; F10.20 Alcohol dependence, uncomplicated; Z79.899 Other long term (current) drug therapy; Y90.9 Presence of alcohol in blood, level not specified
CPT/HCPCS: 93005; 99283